=== PATIENT | female | born 1930 | race Caucasian/White ===

== ENCOUNTER 2018-04-17 13:00 | Inpatient (IN) | payer MEDICARE ==
[~2018-04-17] VITALS: Ht 162.6 cm; Wt 51.8 kg
[2018-04-17 13:56] LABS: INTERNATIONAL NORMALIZED RATIO 1.07 (0.93-1.1)
[2018-04-17 13:58] LABS: ALBUMIN 2.5 g/dL (3.4-5.0); ANION GAP 6 mmol/L (5-15); CALCIUM 8.1 mg/dL (8.5-10.1); CHLORIDE 115 mmol/L (98-107); CREATININE 0.62 mg/dL (0.55-1.02)
[2018-04-17 13:59] LABS: MEAN CORPUSCULAR HEMOGLOBIN 24.3 pg (27.0-34.8); MEAN CORPUSCULAR HGB CONC 31.4 g/dL (32.4-35.8); MEAN CORPUSCULAR VOLUME 77.3 fL (80-100); MEAN PLATELET VOLUME 8.8 fL (7.4-10.4); PLATELET COUNT 378 x10^3/uL (130-400); RED BLOOD COUNT 3.04 x10^6/uL (3.82-5.3); RED CELL DISTRIBUTION WIDTH 29.3 % (9.6-15.2)
[2018-04-17] MEDS ORDERED: SODIUM CHLORIDE FLUSH 10ML SYR IVF ONE (14:00)
[2018-04-17] MEDS ORDERED: PLEASE ENTER ALLERGIES MC SCH (14:00)
[2018-04-17] MEDS ORDERED: MORPHINE SULFATE 4 MG/ML, 1ML IVPush PRN (14:00)
[2018-04-17 14:26] LABS: BASOPHILS % (AUTO) 0 % (0-1); EOSINOPHILS # (AUTO) 0.03 x10^3/uL (0-0.4); EOSINOPHILS % (AUTO) 0 % (1-7); LYMPHOCYTES % (AUTO) 7 % (22-44); MD MORPH REVIEW ONLY; MONOCYTES # (AUTO) 1.12 x10^3/uL (0.2-0.8); MONOCYTES % (AUTO) 8 % (2-9); NEUTROPHILS # (AUTO) 11.67 x10^3/uL (1.8-6.8); NEUTROPHILS % (AUTO) 85 % (42-75)
[2018-04-17 14:27] LABS: ANISOCYTOSIS 2+; HYPOCHROMIA 2+; MICROCYTOSIS 2+
[2018-04-17 14:28] LABS: <PLATELET ESTIMATE> ADEQUATE; <PLT MORPHOLOGY> NORMAL PLT MORPH
[2018-04-17] MEDS ORDERED: CEFU125S PO (14:29)
[2018-04-17] MEDS ORDERED: INSU100I13 SQ (14:30)
[2018-04-17] MEDS ORDERED: QUET25TA5 PO (14:31)
[2018-04-17] MEDS ORDERED: ALEN70SO3 PO (14:33)
[2018-04-17] MEDS ORDERED: FERR324T5 PO (14:34)
[2018-04-17] MEDS ORDERED: SIMV40TA3 PO (14:35)
[2018-04-17] MEDS ORDERED: TOBR3.5O2 EACHEYE (14:43)
[2018-04-17] MEDS ORDERED: SODIUM CHLORIDE 0.9% 1,000 ML IV ONE (14:46)
[2018-04-17] MEDS: SODIUM CHLORIDE 0.9% 1,000 ML IV SCH (14:59)
[2018-04-17] MEDS ORDERED: ONDANSETRON 2MG/ML, 2ML IVPush PRN (15:00)
[2018-04-17] MEDS ORDERED: ACETAMINOPHEN 325 MG TABLET PO PRN (15:00)
[2018-04-17] MEDS ORDERED: BISACODYL 10 MG SUPP PR PRN (15:00)
[2018-04-17] MEDS ORDERED: hydrALAzine 20 MG/ML, 1ML IVPush PRN (15:00)
[2018-04-17] MEDS ORDERED: DOCUSATE 100 MG CAPSULE PO PRN (15:00)
[2018-04-17] MEDS ORDERED: POLYETHYLENE GLYCOL 17 GM PACKET PO PRN (15:00)
[2018-04-17] MEDS ORDERED: SODIUM CHLORIDE 0.9%, 500ML IVBOLUS ONE (15:30)
[2018-04-17] MEDS ORDERED: MORPHINE SULFATE 4 MG/ML, 1ML ONE (15:49)
[2018-04-17 16:14] VITALS: BP 109/61
[2018-04-17 16:30] VITALS: BP 126/63
[2018-04-17 17:14] VITALS: BP 105/56
[2018-04-17] MEDS: MORPHINE SULFATE 4 MG/ML, 1ML IVPush PRN ×2 (17:27→19:23)
[2018-04-17 19:00] VITALS: BP 102/55
[2018-04-17] MEDS: INSULIN LISPRO 100 UNITS/ML, PEN SQ-INSULIN SCH ×2 (19:30→21:00)
[2018-04-17 19:51] VITALS: BP 129/67
[2018-04-17 20:00] VITALS: BP 128/67
[2018-04-17] MEDS: INSULIN GLARGINE 100 UNITS/ML, PEN SQ-INSULIN SCH (21:00)
[2018-04-17] MEDS: PANTOPRAZOLE 40 MG IV IVPush SCH (21:44)
[2018-04-17] MEDS: SIMVASTATIN 40 MG TABLET PO SCH (21:45)
[2018-04-17] MEDS: QUETIAPINE 25MG TABLET PO SCH (21:45)
[2018-04-18] MEDS ORDERED: MORPHINE SULFATE 4 MG/ML, 1ML IVPush PRN
[2018-04-18] MEDS: SODIUM CHLORIDE 0.9% 1,000 ML IV SCH (00:59)
[2018-04-18 02:00] VITALS: BP 90/46
[2018-04-18 03:22] LABS: ANION GAP 6 mmol/L (5-15); CALCIUM 7.9 mg/dL (8.5-10.1); CHLORIDE 118 mmol/L (98-107); CREATININE 0.88 mg/dL (0.55-1.02)
[2018-04-18 03:24] LABS: BASOPHILS % (AUTO) 0 % (0-1); EOSINOPHILS # (AUTO) 0.01 x10^3/uL (0-0.4); EOSINOPHILS % (AUTO) 0 % (1-7); LYMPHOCYTES # (AUTO) 0.72 x10^3/uL (1-3.4); LYMPHOCYTES % (AUTO) 6 % (22-44); MD NO; MEAN CORPUSCULAR HEMOGLOBIN 26.4 pg (27.0-34.8); MEAN CORPUSCULAR VOLUME 82.5 fL (80-100); MEAN PLATELET VOLUME 8.4 fL (7.4-10.4); MONOCYTES % (AUTO) 7 % (2-9); NEUTROPHILS # (AUTO) 11.02 x10^3/uL (1.8-6.8); NEUTROPHILS % (AUTO) 87 % (42-75); PLATELET COUNT 249 x10^3/uL (130-400); RED BLOOD COUNT 3.14 x10^6/uL (3.82-5.3); RED CELL DISTRIBUTION WIDTH 26.3 % (9.6-15.2)
[2018-04-18 04:50] VITALS: BP 101/57
[2018-04-18] MEDS: INSULIN LISPRO 100 UNITS/ML, PEN SQ-INSULIN SCH ×4 (07:00→20:19)
[2018-04-18 08:00] VITALS: BP 92/52
[2018-04-18 08:02] LABS: CULTURE INDICATED? YES; MICROSCOPIC INDICATED
[2018-04-18] MEDS: PANTOPRAZOLE 40 MG IV IVPush SCH ×2 (08:57→20:18)
[2018-04-18] MEDS: FERROUS SULFATE 325 MG TABLET PO SCH (08:59)
[2018-04-18] MEDS: TOBRAMYCIN/DEXAMETH OPHTH OINT 3GM EACHEYE SCH (08:59)
[2018-04-18] MEDS: QUETIAPINE 25MG TABLET PO SCH ×2 (08:59→20:20)
[2018-04-18 13:45] VITALS: BP 92/50
[2018-04-18] MEDS ORDERED: NALOXONE 1 MG/ML, 2ML ONE (13:59)
[2018-04-18] MEDS ORDERED: NALOXONE 1 MG/ML, 2ML IVPush ONE (14:00)
[2018-04-18] MEDS ORDERED: SODIUM CHLORIDE 0.9%, 500ML IVBOLUS ONE ×2 (14:00→16:30)
[2018-04-18] MEDS ORDERED: SODIUM CHLORIDE 0.9% 1,000 ML IV SCH (16:30)
[2018-04-18] MEDS ORDERED: FUROSEMIDE 20 MG/2 ML IV ONE (17:00)
[2018-04-18 20:00] VITALS: BP 101/58
[2018-04-18] MEDS: MORPHINE SULFATE 4 MG/ML, 1ML IVPush PRN (20:17)
[2018-04-18] MEDS: INSULIN GLARGINE 100 UNITS/ML, PEN SQ-INSULIN SCH (20:19)
[2018-04-18] MEDS: SIMVASTATIN 40 MG TABLET PO SCH (20:20)
[2018-04-19 02:00] VITALS: BP 93/57
[2018-04-19 02:17] VITALS: BP 85/55
[2018-04-19] MEDS: MORPHINE SULFATE 4 MG/ML, 1ML IVPush PRN ×9 (04:48→18:10)
[2018-04-19 05:23] LABS: MEAN CORPUSCULAR HEMOGLOBIN 26.9 pg (27.0-34.8); MEAN CORPUSCULAR HGB CONC 32.2 g/dL (32.4-35.8); MEAN CORPUSCULAR VOLUME 83.8 fL (80-100); MEAN PLATELET VOLUME 9.2 fL (7.4-10.4); PLATELET COUNT 235 x10^3/uL (130-400); RED BLOOD COUNT 2.82 x10^6/uL (3.82-5.3); RED CELL DISTRIBUTION WIDTH 28.5 % (9.6-15.2)
[2018-04-19 05:24] LABS: CALCIUM 7.7 mg/dL (8.5-10.1); CHLORIDE 120 mmol/L (98-107)
[2018-04-19 05:27] LABS: ANION GAP 6 mmol/L (5-15); CREATININE 0.97 mg/dL (0.55-1.02)
[2018-04-19 05:44] LABS: BASOPHILS % (AUTO) 0 % (0-1); EOSINOPHILS % (AUTO) 0 % (1-7); LYMPHOCYTES # (AUTO) 0.57 x10^3/uL (1-3.4); LYMPHOCYTES % (AUTO) 4 % (22-44); MD MORPH REVIEW ONLY; MONOCYTES # (AUTO) 0.98 x10^3/uL (0.2-0.8); MONOCYTES % (AUTO) 7 % (2-9); NEUTROPHILS # (AUTO) 12.51 x10^3/uL (1.8-6.8); NEUTROPHILS % (AUTO) 89 % (42-75)
[2018-04-19 05:52] LABS: <PLATELET ESTIMATE> ADEQUATE; <PLT MORPHOLOGY> NORMAL PLT MORPH; ANISOCYTOSIS 2+; HYPOCHROMIA 1+; MICROCYTOSIS 2+
[2018-04-19] MEDS: INSULIN LISPRO 100 UNITS/ML, PEN SQ-INSULIN SCH ×3 (07:00→16:00)
[2018-04-19 07:55] VITALS: BP 115/69
[2018-04-19] MEDS: QUETIAPINE 25MG TABLET PO SCH (08:59)
[2018-04-19] MEDS: FERROUS SULFATE 325 MG TABLET PO SCH (08:59)
[2018-04-19] MEDS: TOBRAMYCIN/DEXAMETH OPHTH OINT 3GM EACHEYE SCH (09:00)
[2018-04-19] MEDS: PANTOPRAZOLE 40 MG IV IVPush SCH (09:10)
[2018-04-19] MEDS ORDERED: LORazepam 2 MG/ML, 1ML IVPush PRN (15:30)
[2018-04-19] MEDS ORDERED: ATROPINE OPHTH SOLN 1%, 5ML BC PRN (15:30)
[2018-04-19] MEDS: SCOPOLAMINE PATCH, 1.5MG PATCH.TD72 TD PRN (16:51)
[2018-04-20] MEDS: SCOPOLAMINE PATCH, 1.5MG PATCH.TD72 TD PRN (07:42)
[2018-04-24] MEDS ORDERED: ALENDRONATE 70 MG TABLET PO SCH (06:30)
== END 2018-04-20 18:00 | disposition expired ==
LOC: ED 14:58 → EDIP 14:59 → ED 15:23 → 4WST 16:47 → 4EST 16:54 → 3NW 04-19 18:03
PROVIDERS: ADMIT Internal Medicine; ATTEND Internal Medicine
PROC: 30233N1 Transfusion of Nonautologous Red Blood Cells into Peripheral Vein, Percutaneous Approach (ICD-10-PCS; principal; 2018-04-17)
PROC: 0T9B70Z Drainage of Bladder with Drainage Device, Via Natural or Artificial Opening (ICD-10-PCS; 2018-04-18)
DX: I21.4 Non-ST elevation (NSTEMI) myocardial infarction (principal); S72.141A Displaced intertrochanteric fracture of right femur, initial encounter for closed fracture; I50.41 Acute combined systolic (congestive) and diastolic (congestive) heart failure; E44.0 Moderate protein-calorie malnutrition; D68.69 Other thrombophilia; D62 Acute posthemorrhagic anemia; Z68.1 Body mass index [BMI] 19.9 or less, adult; K92.1 Melena; N39.0 Urinary tract infection, site not specified; I48.91 Unspecified atrial fibrillation; I11.0 Hypertensive heart disease with heart failure; I95.9 Hypotension, unspecified; E11.65 Type 2 diabetes mellitus with hyperglycemia; E78.5 Hyperlipidemia, unspecified; I48.0 Paroxysmal atrial fibrillation; I48.2 Chronic atrial fibrillation; Z95.0 Presence of cardiac pacemaker; I69.320 Aphasia following cerebral infarction; Z51.5 Encounter for palliative care; Z66 Do not resuscitate; Z79.4 Long term (current) use of insulin; Z98.1 Arthrodesis status
CPT/HCPCS: 36415; 36430; 71045; 80048; 81001; 82040; 82962; 84484; 85014; 85018; 85025; 85610; 85730; 86850; 86900; 86923; 87086; 93005; 93306; 96374; 96375; J2270; J2405; C9113; J1940; J7030; J7040; P9016